=== PATIENT | male | born 1990 | race Caucasian/White ===

== ENCOUNTER 2017-11-22 21:45 | Emergency (ER) | payer SELFPAY, OTHER ==
[2017-11-22] MEDS: HYDROCODONE/APAP (5/325) TAB PO (22:52)
[2017-11-22] MEDS: DIPHTH/TET/ACEL PERTUSS (ADULT) 0.5 ML VIAL IM* (22:53)
[2017-11-22] MEDS: OXYMETAZOLINE 0.05% 15 ML NAS SPRAY NASAL (22:58)
== END 2017-11-23 03:00 | disposition home or self-care (01) ==
LOC: FTE 11-23 03:00
DX: S16.1XXA Strain of muscle, fascia and tendon at neck level, initial encounter (principal); S02.2XXA Fracture of nasal bones, initial encounter for closed fracture; Y08.89XA Assault by other specified means, initial encounter; Z23 Encounter for immunization
CPT/HCPCS: 12011; 70160; 72040; 90471; 90715; 99284-25